=== PATIENT | female | born 1980 | race Caucasian/White ===

== ENCOUNTER 2019-07-14 20:41 | Emergency (ER) | payer OTHER ==
[~2019-07-14] VITALS: Ht 172.7 cm; Wt 68.2 kg
[2019-07-14 20:56] VITALS: BP 122/59; TEMP 97.9
[2019-07-14 23:04] VITALS: PULSE 76
== END 2019-07-14 23:04 | disposition home or self-care (01) ==
LOC: COL.ER 20:41
DX: S60.941A Unspecified superficial injury of left index finger, initial encounter (principal); W46.0XXA Contact with hypodermic needle, initial encounter

== ENCOUNTER 2019-07-27 16:19 | Outpatient (RCR) | payer OTHER ==
[2019-07-27 16:33] VITALS: BP 132/78; PULSE 72; TEMP 98.2
== END 2019-10-25 | disposition home or self-care (01) ==
LOC: EUO
DX: S69.92XA Unspecified injury of left wrist, hand and finger(s), initial encounter (principal)